=== PATIENT | female | born 1940 | race African-American/Black ===

== ENCOUNTER 2018-12-28 17:14 | Inpatient (IN) | payer MEDICARE ==
[~2018-12-28] VITALS: Ht 157.5 cm; Wt 65.8 kg
[~2018-12-28 17:14] MED LIST: ATEN100T PO; CALC-497 PO; CIPR500T PO; CLON0.1T PO; FOLI1TAB16 PO; HYDR-2761 PO; HYDR200T5 PO; HYDR200T71 PO; IBUP100O25 PO; LISI10TA2 PO; METR-34 PO; METR375C4 PO; OMEP40CA5 PO; PYRI100T PO; TRIA1CAP3 PO
--- NOTE | 2018-12-28 17:40 | PHYS DOC ---
Past Medical History Past Medical History: Arthritis, Hypertension, Other Additional Past Medical Histor: BOWEL OBSTRUCTION (WIN BROWN DO) Past Surgical History: Hysterectomy, Other Additional Past Surgical Histo: BOWEL SURG (WIN BROWN DO) Alcohol Use: None Drug Use: None (WIN BROWN DO) Adult General Chief Complaint Chief Complaint: CHEST PAIN HPI HPI Patient is a 78 year old female presented to ER today for evaluation of substernal chest pain, epigastric pain started about 30 minutes ago when she was ready to go to congregational. She denied the pain radiation anywhere, no nausea, no sweating, no trouble breathing. She denies any history of coronary artery disease, no history diabetic. Patient has history hypertension. Patient denies any history of blood clot disorder, no recent travel, no recent operation. She denies any cough or fever. (WIN BROWN DO) Review of Systems Review of Systems Constitutional: Denies fever or chills [] Eyes: Denies change in visual acuity, redness, or eye pain [] HENT: Denies nasal congestion or sore throat [] Respiratory: Denies cough or shortness of breath [] Cardiovascular: No additional information not addressed in HPI [] GI: POSITIVE FOR EPIGASTRIC abdominal pain, NO nausea, vomiting, bloody stools or diarrhea [] : Denies dysuria or hematuria [] Musculoskeletal: Denies back pain or joint pain [] Integument: Denies rash or skin lesions [] Neurologic: Denies headache, focal weakness or sensory changes [] Endocrine: Denies polyuria or polydipsia [] All other systems were reviewed and found to be within normal limits, except as documented in this note. (WIN BROWN DO) Current Medications Current Medications Current Medications Medications (Trade) Dose Ordered Sig/[facility] Start Time Stop Time Status Last Admin Dose Admin Aspirin (Pablo Aspirin) 325 mg 1X ONCE 12/28/18 17:45 12/28/18 17:46 DC 12/28/18 18:15 325 MG Famotidine (Pepcid Vial) 20 mg 1X ONCE 12/28/18 17:45 12/28/18 17:46 DC 12/28/18 18:17 20 MG Multi-Ingredient Mouthwash/Gargle (Gi Cocktail) 20 ml 1X ONCE 12/28/18 17:45 12/28/18 17:46 DC 12/28/18 18:16 20 ML Nitroglycerin (Nitrostat) 0.4 mg PRN Q5MIN PRN 12/28/18 17:45 12/29/18 17:44 (PAMELA PEDRAZA DO) Allergies Allergies Allergies Coded Allergies Type Severity Reaction Last Updated Verified No Known Drug Allergies 12/28/18 No (PAMELA PEDRAZA DO) Physical Exam Physical Exam Constitutional: Well developed, well nourished, no acute distress, non-toxic appearance. [] HENT: Normocephalic, atraumatic, bilateral external ears normal, oropharynx moist, no oral exudates, nose normal. [] Eyes: PERRLA, EOMI, conjunctiva normal, no discharge. [] Neck: Normal range of motion, no tenderness, supple, no stridor. [] Cardiovascular:Heart rate regular rhythm, no murmur [] Lungs & Thorax: Bilateral breath sounds clear to auscultation [] Abdomen: Bowel sounds normal, soft, no tenderness, no masses, no pulsatile masses. [] Skin: Warm, dry, no erythema, no rash. [] Back: No tenderness, no CVA tenderness. [] Extremities: No tenderness, no cyanosis, no clubbing, ROM intact, no edema. [] Neurologic: Alert and oriented X 3, normal motor function, normal sensory function, no focal deficits noted. [] Psychologic: Affect normal, judgement normal, mood normal. [] (WIN BROWN DO) Physical Exam Constitutional: Well developed, well nourished HENT: Normocephalic, atraumatic Cardiovascular: Heart rate regular rhythm, no murmur [] Lungs & Thorax: Bilateral breath sounds clear to auscultation [] Abdomen: Soft, mid epigastric tenderness on palpation. Skin: Warm, dry, no erythema Neurologic: Alert and oriented X 3, no focal deficits noted. [] (PAMELA PEDRAZA DO) Current Patient Data Vital Signs Vital Signs Date Time Temp Pulse Resp B/P (MAP) Pulse Ox O2 Delivery O2 Flow Rate FiO2 12/28/18 19:00 76 18 128/59 (82) 98 Room Air 12/28/18 17:20 98.7 98.7 (PAMELA PEDRAZA DO) Lab Values Laboratory Tests Test 12/28/18 18:05 12/28/18 18:25 White Blood Count 10.9 x10^3/uL (4.0-11.0) Red Blood Count 3.78 x10^6/uL (3.50-5.40) Hemoglobin 11.2 g/dL (12.0-15.5) L Hematocrit 33.5 % (36.0-47.0) L Mean Corpuscular Volume 89 fL (79-100) Mean Corpuscular Hemoglobin 30 pg (25-35) Mean Corpuscular Hemoglobin Concent 33 g/dL (31-37) Red Cell Distribution Width 14.0 % (11.5-14.5) Platelet Count 258 x10^3/uL (140-400) Neutrophils (%) (Auto) 80 % (31-73) H Lymphocytes (%) (Auto) 12 % (24-48) L Monocytes (%) (Auto) 6 % (0-9) Eosinophils (%) (Auto) 1 % (0-3) Basophils (%) (Auto) 0 % (0-3) Neutrophils # (Auto) 8.7 x10^3uL (1.8-7.7) H Lymphocytes # (Auto) 1.3 x10^3/uL (1.0-4.8) Monocytes # (Auto) 0.7 x10^3/uL (0.0-1.1) Eosinophils # (Auto) 0.2 x10^3/uL (0.0-0.7) Basophils # (Auto) 0.0 x10^3/uL (0.0-0.2) Prothrombin Time 13.4 SEC (11.7-14.0) Prothrombin Time INR 1.1 (0.8-1.1) PTT 25 SEC (24-38) Sodium Level 138 mmol/L (136-145) Potassium Level 4.0 mmol/L (3.5-5.1) Chloride Level 100 mmol/L (98-107) Carbon Dioxide Level 28 mmol/L (21-32) Anion Gap 10 (6-14) Blood Urea Nitrogen 30 mg/dL (7-20) H Creatinine 1.1 mg/dL (0.6-1.0) H Estimated GFR (Cockcroft-Gault) 58.1 BUN/Creatinine Ratio 27 (6-20) H Glucose Level 122 mg/dL (70-99) H Calcium Level 9.4 mg/dL (8.5-10.1) Magnesium Level 1.5 mg/dL (1.8-2.4) L Total Bilirubin 0.4 mg/dL (0.2-1.0) Aspartate Amino Transferase (AST) 17 U/L (15-37) Alanine Aminotransferase (ALT) 12 U/L (14-59) L Alkaline Phosphatase 123 U/L (46-116) H Creatine Kinase 56 U/L (26-192) Creatine Kinase MB (Mass) 0.9 ng/mL (0.0-3.6) Creatine Kinase MB Relative Index % (0-4) Troponin I Quantitative < 0.017 ng/mL (0.000-0.055) HI-Una-B-Type Natriuretic Peptide 193 pg/mL (0-449) Total Protein 7.7 g/dL (6.4-8.2) Albumin 3.4 g/dL (3.4-5.0) Albumin/Globulin Ratio 0.8 (1.0-1.7) L Lipase 125 U/L (73-393) Urine Color Yellow Urine Clarity Clear Urine pH 5.5 Urine Specific [place] 1.015 Urine Protein Negative mg/dL (NEG-TRACE) Urine Glucose (UA) Negative mg/dL (NEG) Urine Ketones (Stick) Negative mg/dL (NEG) Urine Blood Negative (NEG) Urine Nitrite Negative (NEG) Urine Bilirubin Negative (NEG) Urine Urobilinogen Dipstick 1.0 mg/dL (0.2 mg/dL) Urine Leukocyte Esterase Moderate (NEG) Urine RBC 0 /HPF (0-2) Urine WBC 1-4 /HPF (0-4) Urine Squamous Epithelial Cells Occ /LPF Urine Bacteria Many /HPF (0-FEW) Laboratory Tests 12/28/18 18:05 Laboratory Tests 12/28/18 18:05 (PAMELA PEDRAZA DO) EKG EKG EKG was read by this physician at 1728, sinus rhythm, heart rate about 88 BPM, NO STEMI. (WIN BROWN DO) Radiology/Procedures Radiology/Procedures [] (WIN BROWN DO) Course & Med Decision Making Course & Med Decision Making Pertinent Labs and Imaging studies reviewed. (See chart for details) Transferred care over to Dr. Alfred Pedraza at shift change, awaiting for lab results. (WIN BROWN DO) Course & Med Decision Making 1800- Sign out received from Dr. Brown for patient with chest pain/epigastric pain. Significant cardiac risk factors: former smoker, HTN, and . HEART score : 5 Labs reviewed. Troponin WNL. LFTs/lipase WNL. CXR without acute process. Patient requiring admission for further evaluation and treatment. Discussed with Dr. Zepeda (hospitalist) who is in agreement with admission. Discussed findings and plan with patient and family, who acknowledge understanding and agreement. (PAMELA PEDRAZA DO) Dragon Disclaimer Dragon Disclaimer This electronic medical record was generated, in whole or in part, using a voice recognition dictation system. (WIN BROWN DO) Departure Departure Impression: Primary Impression: Chest pain Additional Impression: Gastritis Disposition: 09 ADMITTED INPATIENT Admitting Physician: Andrea Zepeda (PAMELA PEDRAZA DO) Condition: STABLE Referrals: ANDREA ZEPEDA MD (PCP) Problem Qualifiers Primary Impression: Chest pain Chest pain type: unspecified Qualified Codes: R07.9 - Chest pain, unspecified Additional Impression: Gastritis Gastritis type: unspecified gastritis Chronicity: acute Gastritis bleeding : without bleeding Qualified Codes: K29.00 - Acute gastritis without bleeding WIN BROWN DO Dec 28, 2018 17:40 PAMELA PDERAZA DO Dec 29, 2018 04:02
--- NOTE | 2018-12-28 17:41 | EKG ---
[facility] [address] [place] [address] Test Date: 2018-12-28 Test Time: 17:26:55 Pat Name: JOSSELYN DONOVAN Department: Room: Gender: F Inspector Clip On Sunglasses: : 1940 Requested By: WIN BROWN Order Number: [id number] Reading MD: Chava Broderick MD Measurements Intervals [place] Rate: 152 P: DE: QRS: 17 QRSD: 66 T: 36 QT: 316 QTc: 510 Interpretive Statements SINUS RHYTHM Electronically Signed On 12-29-2018 11:15:37 BRIM SETTER by Chava Broderick MD
[2018-12-28] MEDS ORDERED: ASPIRIN 325 MG TABLET PO ONE (17:45)
[2018-12-28] MEDS ORDERED: NITROGLYCERIN SUBLINGUAL 0.4 MG BOTTLE OF 25. SL PRN (17:45)
[2018-12-28] MEDS ORDERED: FAMOTIDINE 20 MG/2 ML VIAL IVP ONE (17:45)
[2018-12-28] MEDS ORDERED: LIDO:MAALOX 1:1 20 ML SINGLE DOSE. SWSW ONE (17:45)
--- NOTE | 2018-12-28 18:04 | RAD ---
PORTABLE CHEST 1V History: CHEST PAIN Comparison: July 05, 2014 Findings: AP view of the chest is submitted. There is atherosclerotic calcification near aortic arch. There is no infiltrate, pleural fluid, or pneumothorax. There is likely emphysema. Impression: 1. There is likely emphysema, no acute radiographic abnormality identified. Electronically signed by: Jesus Manuel Thacker MD (12/28/2018 6:01 PM) [facility]
[2018-12-28 18:32] LABS: BASO % 0 % (0-3); EOS % 1 % (0-3); HEMATOCRIT 33.5 % (36.0-47.0); HEMOGLOBIN 11.2 g/dL (12.0-15.5); LYMPH # 1.3 x10^3/uL (1.0-4.8); LYMPH % 12 % (24-48); MEAN CORPUSCULAR HEMOGLOBIN 30 pg (25-35); MEAN CORPUSCULAR HGB CONC 33 g/dL (31-37); MEAN CORPUSCULAR VOLUME 89 fL (79-100); MONO % 6 % (0-9); NEUT # 8.7 x10^3uL (1.8-7.7); NEUT % 80 % (31-73); PLATELET COUNT 258 x10^3/uL (140-400); PROTHROMBIN TIME PATIENT 13.4 SEC (11.7-14.0); RED BLOOD COUNT 3.78 x10^6/uL (3.50-5.40); WHITE BLOOD COUNT 10.9 x10^3/uL (4.0-11.0)
[2018-12-28 18:33] LABS: EOS # 0.2 x10^3/uL (0.0-0.7); MONO # 0.7 x10^3/uL (0.0-1.1)
[2018-12-28 18:49] LABS: CALCIUM 9.4 mg/dL (8.5-10.1); CREATININE 1.1 mg/dL (0.6-1.0); GFR 58.1
[2018-12-28 18:51] LABS: BILIRUBIN,URINE NEGATIVE (NEG); CLARITY,URINE CLEAR; COLOR,URINE YELLOW; NITRITE,URINE NEGATIVE (NEG); PH,URINE 5.5; PROTEIN,URINE NEGATIVE (NEG-TRACE)
[2018-12-28 18:56] LABS: ALBUMIN 3.4 g/dL (3.4-5.0); ALBUMIN/GLOBULIN RATIO 0.8 (1.0-1.7); MAGNESIUM 1.5 mg/dL (1.8-2.4); TOTAL BILIRUBIN 0.4 mg/dL (0.2-1.0); TOTAL PROTEIN 7.7 g/dL (6.4-8.2)
[2018-12-28 19:02] LABS: CREATINE KINASE 56 U/L (26-192)
[2018-12-28 19:04] LABS: BACTERIA,URINE MANY /HPF (0-FEW); RBC,URINE 0 /HPF (0-2); SQUAMOUS EPITHELIAL CELL,UR OCC /LPF
[2018-12-28] MEDS ORDERED: ONDANSETRON PF 4 MG/2 ML VIAL. IV PRN (19:45)
[2018-12-28 20:45] VITALS: BP 138/70
--- NOTE | 2018-12-28 21:43 | NUR ---
Patient admitted to 2S room 254 arrived via wheelchair. Patient oriented to room, call light, and safety policies. Patient family at the bedside and pts vitals are stable.
[2018-12-28 22:59] VITALS: BP 111/55
[2018-12-28] MEDS: HYDROcodone/APAP 5/325MG 1 TAB TABLET PO PRN (23:11)
[2018-12-29 03:35] VITALS: BP 114/53
[2018-12-29 07:00] VITALS: BP 108/59
--- NOTE | 2018-12-29 10:06 | PDOC2 ---
CHARISSA BRADY NURSING COORDINATOR 12/29/18 1006: CARDIAC CONSULT DATE OF CONSULT Date of Consult DATE: 12/29/18 TIME: 09:48 REASON FOR CONSULT Reason for Consult: Chest pain REFERRING PHYSICIAN Referring Physician: Zakiya SOURCE Source: Chart review, Patient HISTORY OF PRESENT ILLNESS HISTORY OF PRESENT ILLNESS This is a pleasant 78 yo female admitted for complains of chest pain. Reports that this is dull achy in her epigastric region and reproducible with palpation. No associated SOA, nausea or palpitations. No exertional dyspnea or CP. No jaw or arm discomfort. She does take aleve for pain but not routinely and takes prednisone. Denies any past PUD, CAD, VTE or any recent falls or injury. PAST MEDICAL HISTORY Cardiovascular: HTN, Hyperlipidemia Pulmonary: No pertinent hx CENTRAL NERVOUS SYSTEM: Other (No pertinent history) GI: Other (bowel obstruction) Heme/Onc: No pertinent hx Hepatobiliary: No pertinent hx Psych: No pertinent hx Musculoskeletal: Osteoarthritis Rheumatologic: Rheumatoid arthritis Infectious disease: No pertinent hx ENT: No pertinent hx Renal/: No pertinent hx Endocrine: No pertinent hx Dermatology: Other (birthmark to left face) PAST SURGICAL HISTORY Past Surgical History: Hysterectomy, Other (bowel resection) SOCIAL HISTORY Smoke: Quit (remotely) ALCOHOL: none Drugs: None Lives: with Family CURRENT MEDICATIONS CURRENT MEDICATIONS Current Medications Medications (Trade) Dose Ordered Sig/Roc Route PRN Reason Start Time Stop Time Status Last Admin Dose Admin Aspirin (Pablo Aspirin) 325 mg 1X ONCE PO 12/28/18 17:45 12/28/18 17:46 DC 12/28/18 18:15 Famotidine (Pepcid Vial) 20 mg 1X ONCE IVP 12/28/18 17:45 12/28/18 17:46 DC 12/28/18 18:17 Multi-Ingredient Mouthwash/Gargle (Gi Cocktail) 20 ml 1X ONCE SWSW 12/28/18 17:45 12/28/18 17:46 DC 12/28/18 18:16 Acetaminophen/ Hydrocodone Bitart (Lortab 5/325) 1 tab PRN Q4HRS PRN PO PAIN 12/28/18 23:00 12/28/18 23:11 ALLERGIES ALLERGIES: Coded Allergies: No Known Drug Allergies (Unverified , 12/28/18) ROS Review of System 14 point ROS evaluated with pertinent positives noted per HPI PHYSICAL EXAM General: Alert, Oriented X3, Cooperative, No acute distress HEENT: Atraumatic, Mucous membr. moist/pink Lungs: Clear to auscultation, Normal air movement Heart: Regular rate (SR), Normal S1, Normal S2, No murmurs Abdomen: Soft, No tenderness Extremities: No cyanosis, No edema Skin: No breakdown, No significant lesion Neuro: Normal speech, Sensation intact Psych/Mental Status: Mental status NL, Mood NL MUSCULOSKELETAL: Osteoarthritic changes both hands VITALS VITALS Vital Signs Date Time Temp Pulse Resp B/P (MAP) Pulse Ox O2 Delivery O2 Flow Rate FiO2 12/29/18 07:00 98.1 74 17 108/59 (75) 98 Room Air 98.1 LABS Lab: Laboratory Tests Test 12/28/18 18:05 12/28/18 18:25 12/28/18 22:50 12/29/18 01:55 White Blood Count 10.9 x10^3/uL (4.0-11.0) Red Blood Count 3.78 x10^6/uL (3.50-5.40) Hemoglobin 11.2 g/dL (12.0-15.5) Hematocrit 33.5 % (36.0-47.0) Mean Corpuscular Volume 89 fL (79-100) Mean Corpuscular Hemoglobin 30 pg (25-35) Mean Corpuscular Hemoglobin Concent 33 g/dL (31-37) Red Cell Distribution Width 14.0 % (11.5-14.5) Platelet Count 258 x10^3/uL (140-400) Neutrophils (%) (Auto) 80 % (31-73) Lymphocytes (%) (Auto) 12 % (24-48) Monocytes (%) (Auto) 6 % (0-9) Eosinophils (%) (Auto) 1 % (0-3) Basophils (%) (Auto) 0 % (0-3) Neutrophils # (Auto) 8.7 x10^3uL (1.8-7.7) Lymphocytes # (Auto) 1.3 x10^3/uL (1.0-4.8) Monocytes # (Auto) 0.7 x10^3/uL (0.0-1.1) Eosinophils # (Auto) 0.2 x10^3/uL (0.0-0.7) Basophils # (Auto) 0.0 x10^3/uL (0.0-0.2) Prothrombin Time 13.4 SEC (11.7-14.0) Prothromb Time International Ratio 1.1 (0.8-1.1) Activated Partial Thromboplast Time 25 SEC (24-38) Sodium Level 138 mmol/L (136-145) Potassium Level 4.0 mmol/L (3.5-5.1) Chloride Level 100 mmol/L (98-107) Carbon Dioxide Level 28 mmol/L (21-32) Anion Gap 10 (6-14) Blood Urea Nitrogen 30 mg/dL (7-20) Creatinine 1.1 mg/dL (0.6-1.0) Estimated GFR (Cockcroft-Gault) 58.1 BUN/Creatinine Ratio 27 (6-20) Glucose Level 122 mg/dL (70-99) Calcium Level 9.4 mg/dL (8.5-10.1) Magnesium Level 1.5 mg/dL (1.8-2.4) Total Bilirubin 0.4 mg/dL (0.2-1.0) Aspartate Amino Transf (AST/SGOT) 17 U/L (15-37) Alanine Aminotransferase (ALT/SGPT) 12 U/L (14-59) Alkaline Phosphatase 123 U/L (46-116) Creatine Kinase 56 U/L (26-192) Creatine Kinase MB (Mass) 0.9 ng/mL (0.0-3.6) Creatine Kinase MB Relative Index % (0-4) Troponin I Quantitative < 0.017 ng/mL (0.000-0.055) < 0.017 ng/mL (0.000-0.055) < 0.017 ng/mL (0.000-0.055) BG-Tcr-H-Type Natriuretic Peptide 193 pg/mL (0-449) Total Protein 7.7 g/dL (6.4-8.2) Albumin 3.4 g/dL (3.4-5.0) Albumin/Globulin Ratio 0.8 (1.0-1.7) Lipase 125 U/L (73-393) Urine Color Yellow Urine Clarity Clear Urine pH 5.5 Urine Specific [place] 1.015 Urine Protein Negative mg/dL (NEG-TRACE) Urine Glucose (UA) Negative mg/dL (NEG) Urine Ketones (Stick) Negative mg/dL (NEG) Urine Blood Negative (NEG) Urine Nitrite Negative (NEG) Urine Bilirubin Negative (NEG) Urine Urobilinogen Dipstick 1.0 mg/dL (0.2 mg/dL) Urine Leukocyte Esterase Moderate (NEG) Urine RBC 0 /HPF (0-2) Urine WBC 1-4 /HPF (0-4) Urine Squamous Epithelial Cells Occ /LPF Urine Bacteria Many /HPF (0-FEW) ECHOCARDIOGRAM ECHOCARDIOGRAM <Conclusion> The left ventricular systolic function is normal and the ejection fraction is within normal range. The Ejection Fraction is 60-65%. Doppler and Color-flow revealed trace to mild mitral regurgitation. Doppler and Color Flow revealed mild tricuspid regurgitation. The pulmonary artery systolic pressure is estimated at 30-40 mmHg. The IVC is normal in size and collapses >50% with inspiration. There is no evidence of significant pericardial effusion. DATE: 12/13/13 0913 ASSESSMENT/PLAN ASSESSMENT/PLAN 1. Atypical CP: likely GI. trop series nml, EKG SR with out acute changes 2. HTN: controlled 3. RA 4. COPD: remotely quit tobacco. 5. Prolonged QTc: 510. No arrhythmias per tele. Recommendations 1. TTE today and will note PAP. Will need PPI. 2. Continue with home BP regimen 3. Caution with QT prolonging drugs. 4. May have had stress test in [facility] last yr, will obtain records LAURA PHILLIPS MD 12/29/182035: CARDIAC CONSULT ASSESSMENT/PLAN ASSESSMENT/PLAN Patient seen and examined. Agree with [facility] PATIENTS's assessment and plan. CP with atypical features and most likely GI etiology CA ruled out Check 2D echo to assess LVF and rule out WMA Plan ischemic evaluation as outpatient Thank you for your consultation CHARISSA BRADY APRN Dec 29, 2018 10:06 LAURA PHILLIPS MD Dec 29, 2018 20:36
[2018-12-29] MEDS ORDERED: PANTOPRAZOLE 40 MG TABLET.DR. PO ONE (10:15)
[2018-12-29] MEDS ORDERED: ONDA4TAB11 PO (10:21)
[2018-12-29] MEDS ORDERED: CARV12.53 PO (10:21)
[2018-12-29] MEDS ORDERED: OXYC-411 PO (10:21)
[2018-12-29] MEDS ORDERED: TRIA1CAP PO (10:21)
[2018-12-29] MEDS ORDERED: AMLO5TAB10 PO (10:21)
[2018-12-29] MEDS ORDERED: PRED5TAB PO (10:21)
[2018-12-29] MEDS ORDERED: NITR0.4T22 SL (10:23)
--- NOTE | 2018-12-29 10:39 | PDOC ---
Provider Note Provider Note Pt seen.H&P dictated.#[id number] ZELDA ZEPEDA MD Dec 29, 2018 10:39
[2018-12-29] MEDS ORDERED: NITROGLYCERIN SUBLINGUAL 0.4 MG BOTTLE OF 25. SL PRN (10:45)
[2018-12-29] MEDS ORDERED: oxyCODONE/APAP 10/325 1 TAB TABLET PO PRN (10:45)
[2018-12-29 11:00] VITALS: BP 122/59
[2018-12-29] MEDS ORDERED: ONDANSETRON ODT 4 MG TAB.RAPDIS. PO PRN (11:00)
[2018-12-29] MEDS ORDERED: MAGNESIUM SULFATE 2GM 50 ML IV ONE (11:00)
[2018-12-29] MEDS: predniSONE 5 MG TABLET PO SCH (11:07)
[2018-12-29] MEDS: amLODIPine BESYLATE 5 MG TABLET PO SCH (11:08)
[2018-12-29] MEDS: IV NORMAL SALINE 1000ML BAG 1,000 ML IV SCH ×2 (11:09→22:03)
--- NOTE | 2018-12-29 14:22 | PDOC2 ---
GI CONSULT Reason For Consult: EGD, epigastric pain HPI: HPI: 78 y/o female w/ atypical chest pain. Followed by cardiology, plans for echocardiogram. We were asked to see for abdominal pain which she has actually recently seen Dr. Grant for. She says epigastric pain comes and goes, is unrelated to eating, might be worse with coughing, and "takes her breath away." Denies radiation of pain. No reflux/heartburn, dysphagia, odynophagia, n/v, hematemesis, diarrhea, hematochezia, melena, change in appetite, or weight loss. Some h/o constipation, last BM 3 days ago. Records indicates she takes omeprazole - she denies. She has taken Miralax in the past but does not take regularly - past [facility] has suggested substantial amount of retained stool. Takes Aleve PRN and prednisone (for RA - ?also methotrexate). H/o latent TB (says no longer taking INH). Most recent EGD and colonoscopy were performed in 11/2017 and showed normal esophagus, normal stomach, normal duodenum, and left-sided diverticulosis. Also had an EGD in 2014 which showed reflux. Empiric esophageal dilation was performed. Additionally had EGDs in 2012, 2009, and 2002 that were essentially unremarkable. Also had colonoscopies in 2005 and 2009 w/ diverticulosis and hemorrhoids. Had MRCP in 07/2017 for dilated CBD on US; it showed dilation of CBD (9mm) w/ mild to moderate intrahepatic biliary dilatation w/ smooth tapering of CBD distally, no evidence of choledocholithiasis or cholelithiasis, 5mm hyperintense lesion within the hepatic dome (incompletely characterized), and two hyperintense lesions within the right kidney measuring up to 9mm ( suggestive of proteinaceous or hemorrhagic cysts). Had a CT A/P w/ contrast [facility] for periumbilical abd pain which showed normal liver, normal gallbladder, borderline dilatation of CBD (7-8mm), mild dilatation of PD (3mm - likely result of mild fatty atrophy), normal hiatal hernia, diverticulosis, and bilateral renal cysts. PMH: PMH: HTN, HLD, RA, h/o latent TB hysterectomy, surgery for "twisted intestine" @ [facility] in [place]: Family History: Cancer (brother - pancreatic, sister - breast), CAD, DM Social History: Smoke: Quit ALCOHOL: none Drugs: None ROS: GEN: Denies fevers, chills, sweats HEENT: Denies blurred vision, sore throat CV: Denies chest pain RESP: Denies shortness of air, cough GI: Per HPI : Denies hematuria, dysuria ENDO: Denies weight changes NEURO: Denies confusion, dizziness MSK: Denies weakness, joint pain/swelling SKIN: Denies jaundice, pruritus Vitals: Vitals: Vital Signs Date Time Temp Pulse Resp B/P (MAP) Pulse Ox O2 Delivery O2 Flow Rate FiO2 12/29/18 11:08 74 108/59 12/29/18 11:00 98.0 18 99 Room Air 98.0 Labs: Labs: Laboratory Tests Test 12/28/18 18:05 12/28/18 18:25 12/28/18 22:50 12/29/18 01:55 White Blood Count 10.9 x10^3/uL (4.0-11.0) Red Blood Count 3.78 x10^6/uL (3.50-5.40) Hemoglobin 11.2 g/dL (12.0-15.5) Hematocrit 33.5 % (36.0-47.0) Mean Corpuscular Volume 89 fL (79-100) Mean Corpuscular Hemoglobin 30 pg (25-35) Mean Corpuscular Hemoglobin Concent 33 g/dL (31-37) Red Cell Distribution Width 14.0 % (11.5-14.5) Platelet Count 258 x10^3/uL (140-400) Neutrophils (%) (Auto) 80 % (31-73) Lymphocytes (%) (Auto) 12 % (24-48) Monocytes (%) (Auto) 6 % (0-9) Eosinophils (%) (Auto) 1 % (0-3) Basophils (%) (Auto) 0 % (0-3) Neutrophils # (Auto) 8.7 x10^3uL (1.8-7.7) Lymphocytes # (Auto) 1.3 x10^3/uL (1.0-4.8) Monocytes # (Auto) 0.7 x10^3/uL (0.0-1.1) Eosinophils # (Auto) 0.2 x10^3/uL (0.0-0.7) Basophils # (Auto) 0.0 x10^3/uL (0.0-0.2) Prothrombin Time 13.4 SEC (11.7-14.0) Prothromb Time International Ratio 1.1 (0.8-1.1) Activated Partial Thromboplast Time 25 SEC (24-38) Sodium Level 138 mmol/L (136-145) Potassium Level 4.0 mmol/L (3.5-5.1) Chloride Level 100 mmol/L (98-107) Carbon Dioxide Level 28 mmol/L (21-32) Anion Gap 10 (6-14) Blood Urea Nitrogen 30 mg/dL (7-20) Creatinine 1.1 mg/dL (0.6-1.0) Estimated GFR (Cockcroft-Gault) 58.1 BUN/Creatinine Ratio 27 (6-20) Glucose Level 122 mg/dL (70-99) Calcium Level 9.4 mg/dL (8.5-10.1) Magnesium Level 1.5 mg/dL (1.8-2.4) Total Bilirubin 0.4 mg/dL (0.2-1.0) Aspartate Amino Transf (AST/SGOT) 17 U/L (15-37) Alanine Aminotransferase (ALT/SGPT) 12 U/L (14-59) Alkaline Phosphatase 123 U/L (46-116) Creatine Kinase 56 U/L (26-192) Creatine Kinase MB (Mass) 0.9 ng/mL (0.0-3.6) Creatine Kinase MB Relative Index % (0-4) Troponin I Quantitative < 0.017 ng/mL (0.000-0.055) < 0.017 ng/mL (0.000-0.055) < 0.017 ng/mL (0.000-0.055) GA-Evm-K-Type Natriuretic Peptide 193 pg/mL (0-449) Total Protein 7.7 g/dL (6.4-8.2) Albumin 3.4 g/dL (3.4-5.0) Albumin/Globulin Ratio 0.8 (1.0-1.7) Lipase 125 U/L (73-393) Urine Color Yellow Urine Clarity Clear Urine pH 5.5 Urine Specific [place] 1.015 Urine Protein Negative mg/dL (NEG-TRACE) Urine Glucose (UA) Negative mg/dL (NEG) Urine Ketones (Stick) Negative mg/dL (NEG) Urine Blood Negative (NEG) Urine Nitrite Negative (NEG) Urine Bilirubin Negative (NEG) Urine Urobilinogen Dipstick 1.0 mg/dL (0.2 mg/dL) Urine Leukocyte Esterase Moderate (NEG) Urine RBC 0 /HPF (0-2) Urine WBC 1-4 /HPF (0-4) Urine Squamous Epithelial Cells Occ /LPF Urine Bacteria Many /HPF (0-FEW) Allergies: Coded Allergies: No Known Drug Allergies (Unverified , 12/28/18) Medications: Current Medications Medications (Trade) Dose Ordered Sig/Roc Route PRN Reason Start Time Stop Time Status Last Admin Dose Admin Aspirin (Pablo Aspirin) 325 mg 1X ONCE PO 12/28/18 17:45 12/28/18 17:46 DC 12/28/18 18:15 Famotidine (Pepcid Vial) 20 mg 1X ONCE IVP 12/28/18 17:45 12/28/18 17:46 DC 12/28/18 18:17 Multi-Ingredient Mouthwash/Gargle (Gi Cocktail) 20 ml 1X ONCE SWSW 12/28/18 17:45 12/28/18 17:46 DC 12/28/18 18:16 Acetaminophen/ Hydrocodone Bitart (Lortab 5/325) 1 tab PRN Q4HRS PRN PO PAIN MILD TO MOD 12/28/18 23:00 12/28/18 23:11 Pantoprazole Sodium (Protonix) 40 mg 1X ONCE PO 12/29/18 10:15 12/29/18 10:16 DC 12/29/18 10:11 Magnesium Sulfate 50 ml @ 25 mls/hr 1X ONCE IV 12/29/18 11:00 12/29/18 12:59 DC 12/29/18 11:10 Sodium Chloride 1,000 ml @ 100 mls/hr Q10H IV 12/29/18 10:45 12/29/18 11:09 Amlodipine Besylate (Norvasc) 5 mg DAILY PO 12/29/18 11:00 12/29/18 11:08 Prednisone (Prednisone) 5 mg DAILY PO 12/29/18 11:00 12/29/18 11:07 Imaging: Imaging: CXR Impression: 1. There is likely emphysema, no acute radiographic abnormality identified. PE: GEN: NAD HEENT: Atraumatic, PERRL LUNGS: CTAB HEART: RRR ABD: NABS, S/ND, epigastric and LUQ tenderness - ?muscular EXTREMITY: No edema SKIN: No rashes, no jaundice NEURO/PSYCH: A & O 3 A/P: A/P: Atypical chest pain, epigastric pain GERD, hiatal hernia Constipation CRC screen - UTD Diverticulosis, hemorrhoids Borderline dilated CBD, mildly dilated PD Chronic anemia (stable), BHAVYA (Cr 1.1), elevated Alk Phos -- Extensive GI workup per HPI. Plans for echocardiogram per cardiology. BID PPI and Miralax - encouraged compliance with both. Per Dr. Grant - referring to [facility] for outpt EUS re: dilation of pancreatic duct and recurrent abd pain. Called recommendations to DANIEL ACOSTA Dec 29, 2018 14:22
[2018-12-29 15:00] VITALS: BP 124/60
--- NOTE | 2018-12-29 15:22 | NUR ---
SS following for discharge planning. SS reviewed pt chart. Pt is from home and is currently on room air. No discharge needs noted at this time. SS will continue to follow for pending discharge needs.
[2018-12-29] MEDS ORDERED: Pantoprazole PO (15:55)
[2018-12-29] MEDS ORDERED: ONDA4VIA7 IV (15:55)
[2018-12-29] MEDS ORDERED: HYDR-2761 PO (15:55)
[2018-12-29] MEDS ORDERED: POLY17PO28 PO (15:55)
--- NOTE | 2018-12-29 16:04 | HP ---
ADMIT DATE: 12/28/2018 LOCATION: 254. REASON FOR ADMISSION TO THE HOSPITAL: Chest pain, epigastric pain, has risk factors including hypertension, hyperlipidemia. HISTORY OF PRESENT ILLNESS: The patient is a 78-year-old female patient, known to me. She has history of rheumatoid arthritis. She is seeing Rheumatology, and she also has history of hypertension, arthritis, peptic ulcer disease, and she came with severe pain in the epigastric area, going to the back. She has family history of coronary artery disease, who was admitted to the hospital for further investigation and treatments. Cardiac enzymes and EKG were negative. PAST MEDICAL HISTORY: Hypertension, hyperlipidemia, rheumatoid arthritis, osteoarthritis, diverticulosis and esophageal dilatation done. PAST SURGICAL HISTORY: Hysterectomy, bowel resection in the past. SOCIAL HISTORY: Denies smoking, alcohol, drug abuse. FAMILY HISTORY: Heart disease. ALLERGIES: None. MEDICATIONS AT HOME: She is on amlodipine 5 mg daily, calcium with vitamin D twice a day, Coreg 12.5 twice a day, sublingual nitro, omeprazole 40 mg daily, Zofran for nausea, oxycodone 10/325 for pain, prednisone 5 mg daily, Dyazide 1 daily. REVIEW OF SYSTEMS: Complains of pain in the epigastric, point tenderness to the back. Has no nausea, vomiting, diarrhea. LUNGS: No shortness of breath. Rest of the 14-system was reviewed and negative. PHYSICAL EXAMINATION: GENERAL: The patient is not in any distress. VITAL SIGNS: Temperature 98, pulse 80, respirations 20, blood pressure 130/60. HEENT: Head is atraumatic. Pupils equal. Oral cavity: No congestion. NECK: Supple. Thyroid not enlarged. JVD not elevated. CHEST: Symmetrical. CARDIOVASCULAR: S1, S2. LUNGS: Clear. ABDOMEN: The patient has tenderness in the epigastric area. No rebound. Bowel sounds present. EXTERNAL GENITALIA: No H[place]. RECTAL: Deferred. EXTREMITIES: No calf tenderness, no edema. NEUROLOGIC: Moving all extremities. No focal deficits noted. LABORATORY DATA: Shows a white count of 11, hemoglobin 11, platelets 258. INR 1.1. Electrolytes show sodium 138, potassium 4.0, chloride 100, bicarbonate 28, BUN 30, creatinine 1.1, glucose 122. Magnesium 1.5, slightly low. LFTs normal. Troponin 3 were negative. Urine is negative. Chest x-ray, some emphysema, otherwise negative. FINAL IMPRESSION: 1. Epigastric pain. 2. History of gastritis as well as diverticulosis. 3. Rheumatoid arthritis, on prednisone. 4. Hypertension. 5. History of arthritis. PLAN: At this time, was admitted to the hospital. Cardiology is consulted. I believe she had a stress test done at last year. We will try to get the reports. Also, we will have a GI consult, may need EGD. She is also on Protonix. ZELDA ZEPEDA MD DR: GABINO/kyleigh JOB#: [id number] / [id number]
[2018-12-29] MEDS: PANTOPRAZOLE 40 MG TABLET.DR. PO SCH (16:34)
[2018-12-29] MEDS: CALCIUM CARB/VIT D3 500/200 TABLET. PO SCH (17:39)
[2018-12-29] MEDS: CARVEDILOL 12.5 MG TABLET. PO SCH (17:40)
[2018-12-29] MEDS: HYDROcodone/APAP 5/325MG 1 TAB TABLET PO PRN (19:04)
[2018-12-29 19:30] VITALS: BP 107/53
[2018-12-29] MEDS: POLYETHYLENE GLYCOL 3350 17 GM PACKET. PO SCH (22:00)
[2018-12-29 23:01] VITALS: BP 125/63
[2018-12-30 03:37] VITALS: BP 120/63
[2018-12-30 06:12] LABS: CALCIUM 8.9 mg/dL (8.5-10.1); GFR 64.9; MAGNESIUM 2.2 mg/dL (1.8-2.4)
[2018-12-30] MEDS: IV NORMAL SALINE 1000ML BAG 1,000 ML IV SCH (06:45)
[2018-12-30 07:00] VITALS: BP 124/62
[2018-12-30] MEDS ORDERED: NON FORMULARY ITEM (Omeprazole 40 MG) PO SCH (07:30)
[2018-12-30] MEDS ORDERED: PANTOPRAZOLE 40 MG TABLET.DR. PO SCH (07:30)
[2018-12-30] MEDS: PANTOPRAZOLE 40 MG TABLET.DR. PO SCH (09:32)
[2018-12-30] MEDS: amLODIPine BESYLATE 5 MG TABLET PO SCH (09:32)
[2018-12-30] MEDS: POLYETHYLENE GLYCOL 3350 17 GM PACKET. PO SCH (09:33)
[2018-12-30] MEDS: predniSONE 5 MG TABLET PO SCH (09:33)
[2018-12-30] MEDS: CALCIUM CARB/VIT D3 500/200 TABLET. PO SCH (09:33)
[2018-12-30] MEDS: CARVEDILOL 12.5 MG TABLET. PO SCH (09:33)
[2018-12-30] MEDS: HYDROcodone/APAP 5/325MG 1 TAB TABLET PO PRN (09:33)
--- NOTE | 2018-12-30 10:24 | PDOC ---
PROGRESS NOTES Subjective Subjective some epigastric pain Objective Objective Vital Signs Date Time Temp Pulse Resp B/P (MAP) Pulse Ox O2 Delivery O2 Flow Rate FiO2 12/30/18 09:33 71 12/30/18 08:00 Room Air 12/30/18 07:00 98.1 18 124/62 (82) 98 98.1 Intake and Output 12/30/18 07:00 Intake Total 1250 ml Balance 1250 ml Intake Oral 1250 ml # Voids 2 # Bowel Movements 2 Physical Exam Abdomen: Soft, No tenderness Heart: Regular rate (SR), Normal S1, Normal S2, No murmurs Extremities: No cyanosis, No edema General: Alert, Oriented X3, Cooperative, No acute distress HEENT: Atraumatic, Mucous membr. moist/pink Lungs: Clear to auscultation, Normal air movement MUSCULOSKELETAL: Osteoarthritic changes both hands Neuro: Normal speech, Sensation intact Psych/Mental Status: Mental status NL, Mood NL Skin: No breakdown, No significant lesion Diagnosis Problem List Problems Medical Problems: (1) Chest pain Status: Acute (2) Gastritis Status: Acute Assessment Assessment Problems Medical Problems: (1) Chest pain Status: Acute (2) Gastritis Status: Acute FINAL IMPRESSION: 1. Epigastric pain. 2. History of gastritis as well as diverticulosis. 3. Rheumatoid arthritis, on prednisone. 4. Hypertension. 5. History of arthritis. PLAN: labs ok EKG ,neg ,troponin neg pt seen cardiology ,cath in last 1 yr ,no major blockages. troponin neg. CT abd and pelvis -ve. d/c home today f/u GI at for endoscopic ultrasound liver and Pancreas.. At this time, was admitted to the hospital. Cardiology is consulted. I believe she had a stress test done at last year. We will try to get the reports. Also, we will have a GI consult, may need EGD. She is also on Protonix. Plan Plan of Care Problems Medical Problems: (1) Chest pain Status: Acute (2) Gastritis Status: Acute Comment Review of Relevant I have reviewed the following items jhon (where applicable) has been applied. Labs Laboratory Tests Test 12/30/18 05:17 Sodium Level 140 mmol/L (136-145) Potassium Level 4.0 mmol/L (3.5-5.1) Chloride Level 105 mmol/L (98-107) Carbon Dioxide Level 30 mmol/L (21-32) Anion Gap 5 (6-14) Blood Urea Nitrogen 20 mg/dL (7-20) Creatinine 1.0 mg/dL (0.6-1.0) Estimated GFR (Cockcroft-Gault) 64.9 Glucose Level 108 mg/dL (70-99) Calcium Level 8.9 mg/dL (8.5-10.1) Magnesium Level 2.2 mg/dL (1.8-2.4) Gamma Glutamyl Transpeptidase 21 U/L (5-55) Medications Current Medications Amlodipine Besylate (Norvasc) 5 mg DAILY PO Last administered on 12/30/18 09:32 ; Start 12/29/18 at 11:00 Calcium/Vitamin D (Oscal D 500mg/ 200uts) 1 tab BIDWMEALS PO Last administered on 12/30/18 09:33; Start 12/29/18 at 17:00 Carvedilol (Coreg) 12.5 mg BIDWMEALS PO Last administered on 12/30/18 09:33; Start 12/29/18 at 17:00 Magnesium Sulfate 50 ml @ 25 mls/hr 1X ONCE IV Last administered on 12/29/18at 11:10; Start 12/29/18 at 11:00; Stop 12/29/18 at 12:59; Status DC Nitroglycerin (Nitrostat) 0.4 mg PRN Q5MIN PRN SL CHEST PAIN; Start 12/29/18 at 10:45 Non-Formulary Medication (Omeprazole ) 40 mg DAILYAC PO ; Start 12/30/18 at 07:30 ; Status UNV Ondansetron HCl (Zofran Odt) 4 mg PRN DAILY PRN PO NAUSEA/VOMITING; Start at 11:00 Oxycodone/ Acetaminophen (Percocet 10/325) 1 tab PRN Q8HRS PRN PO PAIN SEVERE; Start 12/29/18 at 10:45 Pantoprazole Sodium (Protonix) 40 mg BIDAC PO Last administered on 12/30/18 09: 32; Start 12/29/18 at 16:30 Pantoprazole Sodium (Protonix) 40 mg DAILYAC PO ; Start 12/30/18 at 07:30; Stop 12/30/18 at 07:30; Status DC Polyethylene Glycol (miraLAX PACKET) 17 gm BID PO Last administered on 09:33; Start 12/29/18 at 21:00 Prednisone (Prednisone) 5 mg DAILY PO Last administered on 12/30/18 09:33; Start 12/29/18 at 11:00 Sodium Chloride 1,000 ml @ 100 mls/hr Q10H IV Last administered on 12/29/18at 22 :03; Start 12/29/18 at 10:45 Vitals/I & O Vital Sign - Last 24 Hours 12/29/18 12/29/18 12/29/18 12/29/18 11:00 11:08 15:00 17:40 Temp 98.0 98.6 98.0 98.6 Pulse 81 74 79 79 Resp 18 18 B/P (MAP) 122/59 (80) 108/59 124/60 (81) 122/69 Pulse Ox 99 99 O2 Delivery Room Air Room Air 12/29/18 12/29/18 12/29/18 12/29/18 19:04 19:30 20:00 23:01 Temp 97.8 98.0 97.8 98.0 Pulse 76 77 Resp 16 16 B/P (MAP) 107/53 (71) 125/63 (83) Pulse Ox 97 95 O2 Delivery Room Air Room Air Room Air Room Air 12/30/18 12/30/18 12/30/18 12/30/18 03:37 07:00 08:00 09:32 Temp 97.3 98.1 97.3 98.1 Pulse 74 76 71 Resp 16 18 B/P (MAP) 120/63 (82) 124/62 (82) Pulse Ox 96 98 O2 Delivery Room Air Room Air Room Air 12/30/18 09:33 Pulse 71 Intake and Output 12/29/18 12/29/18 12/30/18 15:00 23:00 07:00 Intake Total 1250 ml Balance 1250 ml ZELDA ZEPEDA MD Dec 30, 2018 10:24
--- NOTE | 2018-12-30 10:44 | PDOC ---
Subjective: Subjective: Had abd pain. Tolerating PO, has stooled. Objective: Objective: Reviewed cardiology notes - plans for echo and ischemic workup as outpt. Vital Signs: Vital Signs Date Time Temp Pulse Resp B/P (MAP) Pulse Ox O2 Delivery O2 Flow Rate FiO2 12/30/18 09:33 71 12/30/18 08:00 Room Air 12/30/18 07:00 98.1 18 124/62 (82) 98 98.1 Labs: Laboratory Tests Test 12/30/18 05:17 Sodium Level 140 mmol/L Potassium Level 4.0 mmol/L Chloride Level 105 mmol/L Carbon Dioxide Level 30 mmol/L Anion Gap 5 Blood Urea Nitrogen 20 mg/dL Creatinine 1.0 mg/dL Estimated GFR (Cockcroft-Gault) 64.9 Glucose Level 108 mg/dL Calcium Level 8.9 mg/dL Magnesium Level 2.2 mg/dL Gamma Glutamyl Transpeptidase 21 U/L PE: GEN: NAD LUNGS: CTAB HEART: RRR ABD: epigastric tenderness NEURO/PSYCH: A & O 3 A/P: Epigastric pain GERD, constipation Borderline dilated CBD, mildly dilated PD -- GGT WNL. Note DC plans. Continue PPI and Miralax - d/w RN. Our office will refer to [facility] for outpt EUS re: dilation of pancreatic duct and recurrent abd pain. DANIEL CORNELIUS Dec 30, 2018 10:44
[2018-12-30 11:21] VITALS: BP 122/65
--- NOTE | 2018-12-30 14:15 | NUR ---
Discharge: Teaching verbal and written. Reviewed medications, follow-up, EUS, GERD, constipation, ect. Written prescription for Lortab. Prescription for Miralax and Protonix called into [facility] [phone]. Spoke with Yohan at [phone]. All belongings with patient. Waiting on ride. Friend at bedside.
--- NOTE | 2018-12-30 14:40 | NUR ---
Patient assisted off of unit via wheelchair accompanied by ELECTR[employer] DE SCALER, daughter and other family.
--- NOTE | 2019-01-05 12:04 | PDOC ---
Provider Note Provider Note Discharge summary dictated.#[id number]. ZELDA ZEPEDA MD Jan 05, 2019 12:04
--- NOTE | 2019-01-05 13:20 | DS ---
DATE OF DISCHARGE: 12/30/2018 REASON FOR ADMISSION TO THE HOSPITAL: Chest pain, epigastric pain. CONSULTATIONS: 1. Dr. Broderick. 2. Dr. Calderon. PROCEDURES DONE: None. HOSPITAL COURSE: The patient is a 78-year-old female complains of pain mostly in the epigastric area, going to the left side. In fact, patient had seen GI, recently had an EGD, and colonoscopy last year. CT scan of the abdomen was done 2 days ago at [facility], which came back negative and she was in process of referral to GI at for endoscopic ultrasound of the abdomen. In the meantime, she has some chest pain, came to the Emergency Room. EKG was negative. Cardiac enzymes negative. The patient sees Cardiology, had a cardiac catheterization 1 year ago, was told no major blockages. The patient was observed and discharged, is recommended to have outpatient followup with Cardiology at and also GI. FINAL DIAGNOSES: 1. Chest pain secondary to gastroesophageal reflux disease. 2. Had a cardiac catheterization at a year ago, was told no major blockages, we will try to get those reports. 3. Rheumatoid arthritis. 4. Gastroesophageal reflux disease. DISPOSITION: Home. DISCHARGE MEDICATIONS: See MRAD. ZELDA ZEPEDA MD DR: GABINO/kyleigh JOB#: [id number] / [id number]
== END 2018-12-30 14:40 | disposition home or self-care (01) | DRG 439 ==
LOC: ER 17:14 → 2 SOUTH 19:25
PROVIDERS: ADMIT Internal Medicine; ATTEND Internal Medicine
DX: K86.89 Other specified diseases of pancreas (principal); N17.9 Acute kidney failure, unspecified; K83.8 Other specified diseases of biliary tract; K21.9 Gastro-esophageal reflux disease without esophagitis; K29.70 Gastritis, unspecified, without bleeding; J44.9 Chronic obstructive pulmonary disease, unspecified; E78.5 Hyperlipidemia, unspecified; I10 Essential (primary) hypertension; I45.81 Long QT syndrome; K57.30 Diverticulosis of large intestine without perforation or abscess without bleeding; M06.9 Rheumatoid arthritis, unspecified; N28.1 Cyst of kidney, acquired; Z80.9 Family history of malignant neoplasm, unspecified; Z82.49 Family history of ischemic heart disease and other diseases of the circulatory system; Z87.11 Personal history of peptic ulcer disease; Z87.891 Personal history of nicotine dependence; Z90.710 Acquired absence of both cervix and uterus; Z83.3 Family history of diabetes mellitus; M19.90 Unspecified osteoarthritis, unspecified site; R07.89 Other chest pain
CPT/HCPCS: 36415; 71045; 80048; 80053; 81001; 82550; 82553; 82977; 83690; 83735; 83880; 84484; 85025; 85610; 85730; 87086; 87186; 93005; 96374; J3475; J3490; J7030; J7512; 99285-25